=== PATIENT | female | born 1995 | race Caucasian/White ===

== ENCOUNTER 2021-11-23 03:16 | Emergency (ER) | payer SELFPAY ==
[2021-11-23 04:28] VITALS: BP 134/68
[2021-11-23 05:10] LABS: Basophils % (Auto) 0.5 % (0.0-1.8); Eosinophils # (Auto) 0.2 K/mm3 (0.0-0.4); Eosinophils % (Auto) 1.5 % (0.0-4.3); Hematocrit 34.3 % (30.3-42.9); Hemoglobin 11.4 gm/dl (10.1-14.3); Mean Corpuscular HGB Conc 33 % (30-34); Mean Corpuscular Volume 93 fl (79-97); Monocytes # (Auto) 0.5 K/mm3 (0.0-0.8); Platelet Count 297 K/mm3 (140-440); Red Blood Count 3.68 M/mm3 (3.65-5.03); Red Cell Distribution Width 13.1 % (13.2-15.2)
[2021-11-23 05:21] LABS: Blood Urea Nitrogen 7 mg/dL (7-17); Calcium 8.9 mg/dL (8.4-10.2); Hemolysis Index 14
[2021-11-23 05:24] LABS: BUN/Creatinine Ratio 10
--- NOTE | 2021-11-23 07:51 | XRay Report ---
XR abdomen 1V ap INDICATION / CLINICAL INFORMATION: Abdominal Pain. COMPARISON: None available. TECHNIQUE: One view supine AP abdomen. FINDINGS: TUBES / LINES: None. BOWEL GAS PATTERN: No significant abnormality. FREE AIR / EXTRALUMINAL GAS: None seen. ADDITIONAL FINDINGS: No significant additional findings. IMPRESSION: 1. No significant abnormality. Signer Name: Jose Venegas II, MD Signed: 11/23/2021 7:51 AM Workstation Name: [id number]
[2021-11-23 08:44] LABS: Mucus,Urine 1+ /HPF; WBC,Urine < 1.0 /HPF (0.0-6.0)
[2021-11-23 08:49] LABS: Color,Urine Yellow (Yellow); HCG Qualitative,Urine Negative (Negative)
--- NOTE | 2021-11-23 09:47 | Ultrasound Report ---
ULTRASOUND PELVIS INDICATION / CLINICAL INFORMATION: pelvis pain. TECHNIQUE: Transabdominal. Transvaginal Duplex Color Doppler used: Yes. COMPARISON: None available FINDINGS: UTERUS: - Appearance: No significant abnormality. - Size (cm): 10.5 x 4.7 x 6.7 - Endometrial Complex (if present): No significant abnormality.. Thickness in cm (if measured) = 1.0 cm - Mass or cyst: None. - Additional findings: None. RIGHT ADNEXA: No significant ovarian cyst or mass. Normal color Doppler blood flow. LEFT ADNEXA: No significant ovarian cyst or mass. Normal color Doppler blood flow. URINARY BLADDER: No significant abnormality. FREE FLUID: Small volume of free fluid, which is likely physiologic. ADDITIONAL FINDINGS: None. IMPRESSION: 1. No significant abnormality. Signer Name: Lino Rincon MD Signed: 11/23/2021 9:42 AM Workstation Name: [id number]
--- NOTE | 2021-11-23 10:12 | Emergency Department Report ---
ED Abdominal Pain HPI - General Chief Complaint: Abdominal Pain Stated Complaint: AB PAIN RT SIDE Time Seen by Provider: 11/23/21 07:20 Source: patient Mode of arrival: Ambulatory Limitations: No Limitations - History of Present Illness Initial Comments: 26-year-old female presents to the ED complaining of right lower pelvic pain x4 days. Patient states that she was on her menstrual cycle for 2 weeks and 1 out of 3 days ago and started having bad pelvic pain to the right lower area. She states that pain is a current 5 out of 10 .patient denies taking any [id number]-ymg-[id number] medication. She described the pain has pressure. Patient is alert and oriented x3. Denies any vaginal bleeding or vaginal discharge. No acute distress noted .No ill appearance noted. MD Complaint: abdominal pain - Related Data Previous Rx's Medication Instructions Recorded Last Taken Type Naproxen [Naprosyn] 500 mg PO BID 15 Days #30 tablet 11/23/21 Unknown Rx Allergies Allergy/AdvReac Type Severity Reaction Status Date / Time No Known Allergies Allergy Unverified 11/23/21 04:27 ED Review of Systems ROS: Stated complaint: AB PAIN RT SIDE Other details as noted in HPI Constitutional: denies: chills, fever Eyes: denies: eye pain, eye discharge, vision change ENT: denies: ear pain, throat pain Respiratory: denies: cough, shortness of breath, wheezing Cardiovascular: denies: chest pain, palpitations Endocrine: no symptoms reported Gastrointestinal: denies: abdominal pain, nausea, diarrhea Genitourinary: denies: urgency, dysuria, discharge Musculoskeletal: denies: back pain, joint swelling, arthralgia Skin: denies: rash, lesions Neurological: denies: headache, weakness, paresthesias Psychiatric: denies: anxiety, depression Hematological/Lymphatic: denies: easy bleeding, easy bruising ED Past Medical Hx - Medications Home Medications: Home Medications Medication Instructions Recorded Confirmed Last Taken Type Naproxen [Naprosyn] 500 mg PO BID 15 Days #30 tablet 11/23/21 Unknown Rx ED Physical Exam - General Limitations: No Limitations General appearance: alert, in no apparent distress - Head Head exam: Present: atraumatic, normocephalic - Eye Eye exam: Present: normal appearance - ENT ENT exam: Present: mucous membranes moist - Neck Neck exam: Present: normal inspection - Respiratory Respiratory exam: Present: normal lung sounds bilaterally. Absent: respiratory distress - Cardiovascular Cardiovascular Exam: Present: regular rate, normal rhythm. Absent: systolic murmur, diastolic murmur, rubs, gallop - GI/Abdominal GI/Abdominal exam: Present: soft, normal bowel sounds - Extremities Exam Extremities exam: Present: normal inspection - Back Exam Back exam: Present: normal inspection - Neurological Exam Neurological exam: Present: alert, oriented X3 - Psychiatric Psychiatric exam: Present: normal affect, normal mood - Skin Skin exam: Present: warm, dry, intact, normal color. Absent: rash ED Course Vital Signs 11/23/21 04:26 Temperature 98.8 F Pulse Rate 69 Respiratory 16 Rate Blood Pressure 134/68 O2 Sat by Pulse 98 Oximetry ED Medical Decision Making - Lab Data Result diagrams: 11/23/21 04:42 11/23/21 04:42 - Radiology Data [facility] [address] [place] [address] Ultrasound Report Signed Patient: JOANIE HERRERA MR#: [id number] : 1995 Acct:[id number] Age/Sex: 26 / F ADM Date: 11/23/21 Loc: ED Attending Dr: Ordering Physician: JONAS COOLEY Date of Service: 11/23/21 Procedure(s): US transvaginal Accession Number(s): [id number] cc: JONAS COOLEY ULTRASOUND PELVIS INDICATION / CLINICAL INFORMATION: pelvis pain. TECHNIQUE: Transabdominal. Transvaginal Duplex Color Doppler used: Yes. COMPARISON: None available FINDINGS: UTERUS: - Appearance: No significant abnormality. - Size (cm): 10.5 x 4.7 x 6.7 - Endometrial Complex (if present): No significant abnormality.. Thickness in cm (if measured) = 1.0 cm - Mass or cyst: None. - Additional findings: None. RIGHT ADNEXA: No significant ovarian cyst or mass. Normal color Doppler blood flow. LEFT ADNEXA: No significant ovarian cyst or mass. Normal color Doppler blood flow. URINARY BLADDER: No significant abnormality. FREE FLUID: Small volume of free fluid, which is likely physiologic. ADDITIONAL FINDINGS: None. IMPRESSION: 1. No significant abnormality. Signer Name: Shannan Rincon MD Signed: 11/23/2021 9:42 AM Workstation Name: [email or web address] Transcribed By: Dictated By: SHANNAN RINCON MD Electronically Authenticated By: SHANNAN RINCON MD Signed Date/Time: 11/23/21941 DD/ 8 TD/TT: - Medical Decision Making 26-year-old female presents to the ED complaining of right lower pelvic pain x4 days. Patient states that she was on her menstrual cycle for 2 weeks and 1 out of 3 days ago and started having bad pelvic pain to the right lower area. She states that pain is a current 5 out of 10 .patient denies taking any [id number] medication. She described the pain has pressure. Patient is alert and oriented x3. Denies any vaginal bleeding or vaginal discharge. No acute distress noted .No ill appearance noted. Examination patient has t enderness to the lower right pelvis area. Transvaginal ultrasound is normal. No pertinent lab Rechecked the patient is resting quietly , comfortable and feeling better. I discussed the results of diagnostic study, my clinical impression and the plan for further treatment with the patient. Patient agrees with plan and discharge at this present time. All question addressed. I have given the patient instruction regarding a diagnosis ,expectation ,follow- up and return precaution. I explained to the patient that emergent condition may arise and to return to the ED for new worsen and any new persisting condition. I have explained the importance of following up with the primary care physician or referral physician listed below has instructed. The patient verbalized understanding of discharge instruction. Abnormal Lab Results 11/23/21 11/23/21 11/23/21 04:42 04:42 04:42 WBC 10.0 RBC 3.68 Hgb 11.4 Hct 34.3 MCV 93 MCH 31 MCHC 33 RDW 13.1 L Plt Count 297 Lymph % (Auto) 40.0 H Wilkin % (Auto) 5.0 Eos % (Auto) 1.5 Baso % (Auto) 0.5 Lymph # (Auto) 4.0 Wilkin # (Auto) 0.5 Eos # (Auto) 0.2 Baso # (Auto) 0.0 Seg Neutrophils % 53.0 Seg Neutrophils # 5.3 Sodium 141 Potassium 4.5 Chloride 105.4 Carbon Dioxide 25 Anion Gap 15 BUN 7 Creatinine 0.7 Estimated GFR > 60 BUN/Creatinine Ratio 10 Glucose 97 Calcium 8.9 HCG, Quant < 1.00 Urine Color Urine Turbidity Specific [place] (Man) Ur Protein (Man) Ur Ketones (Man) Ur Nitrite (Man) Ur Reducing Substances Urine Bilirubin (Man) Urine Ictotest Leukocyte Esterase (Man) Urine WBC (Auto) Urine RBC (Auto) U Epithel Cells (Auto) Urine RBC (Manual) Urine Mucus Urine HCG, Qual 11/23/21 08:29 WBC RBC Hgb Hct MCV MCH MCHC RDW Plt Count Lymph % (Auto) Wilkin % (Auto) Eos % (Auto) Baso % (Auto) Lymph # (Auto) Wilkin # (Auto) Eos # (Auto) Baso # (Auto) Seg Neutrophils % Seg Neutrophils # Sodium Potassium Chloride Carbon Dioxide Anion Gap BUN Creatinine Estimated GFR BUN/Creatinine Ratio Glucose Calcium HCG, Quant Urine Color Yellow Urine Turbidity Clear Specific [place] (Man) 1.030 Ur Protein (Man) <30 mg dl Ur Ketones (Man) Negative Ur Nitrite (Man) Negative Ur Reducing Substances Not Reportable Urine Bilirubin (Man) Negative Urine Ictotest Not Reportable Leukocyte Esterase (Man) Negative Urine WBC (Auto) < 1.0 Urine RBC (Auto) 1.0 U Epithel Cells (Auto) 2.0 Urine RBC (Manual) Negative Urine Mucus 1+ Urine HCG, Qual Negative Critical care attestation.: If time is entered above; I have spent that time in minutes in the direct care of this critically ill patient, excluding procedure time. ED Disposition Clinical Impression: Pain in pelvis Disposition: 01 HOME / SELF CARE / HOMELESS Is pt being admited?: No Condition: Fair Instructions: Pelvic Pain, Female, Xkhb-[id number], Abdominal Pain (ED) Additional Instructions: take medication as prescribed To the ED for any worsening symptom Prescriptions: Naproxen [Naprosyn] 500 mg PO BID 15 Days #30 tablet Referrals: HONORIO RODRIGUEZ MD [Primary Care Provider] - 3-5 Days [facility] [Provider Group] - 3-5 Days Forms: Work/School Release Form(ED) Time of Disposition: 10:14
== END 2021-11-23 10:25 | disposition home or self-care (01) ==
LOC: ED 03:16
DX: R10.2 Pelvic and perineal pain (principal); Z79.899 Other long term (current) drug therapy
CPT/HCPCS: 36415; 74018; 76830; 76856; 80048; 81001; 81025; 84702; 85025; 99284